=== PATIENT | female | born 2000 | race Caucasian/White ===

== ENCOUNTER 2023-04-12 14:21 | Emergency (ER) | payer OTHER, SELFPAY ==
[2023-04-12 14:34] VITALS: BP 104/75
[2023-04-12 15:03] LABS: % Basophils 0.2 % (0-2); % Eosinophils 0.7 % (0-6); % Immature Granulocytes 0.4 % (0-0.5); % Lymphocytes 19.2 % (20.5-51.1); % Monocytes 8.9 % (1.7-9.3); % Neutrophils 70.6 % (42.2-75.2); Absolute Eosinophils 0.1 10^3/uL (0-0.7); Absolute Lymphocytes 1.6 10^3/uL (1.2-3.4); Absolute Monocytes 0.7 10^3/uL (0.1-0.6); Absolute Neutrophils 5.7 10^3/uL (1.4-6.5); Hematocrit 35.8 % (37.0-47.0); Hemoglobin 12.4 g/dL (12.0-16.0); Mean Corp Hgb Conc. 34.6 g/dL (33.0-37.0); Mean Corpuscular Hgb 29.1 pg (27.0-31.0); Mean Platelet Volume 8.9 fL (7.4-10.4); Nucleated Red Blood Cells % 0 %; Platelet Count 342 10^3/uL (130-400); Red Blood Cell Count 4.26 10^6/uL (4.20-5.40); Red Cell Dist. Width 15.1 % (11.5-14.5); White Blood Cell Count 8.1 10^3/uL (4.8-10.8)
[2023-04-12 15:06] LABS: Urine Albumin Negative (Neg - Trace); Urine Bilirubin Negative (Negative); Urine Character Clear (Clear); Urine Color Yellow; Urine Glucose Negative (Negative); Urine Ketone Negative (Negative); Urine Leukocyte Negative (Negative); Urine Nitrite Negative (Negative); Urine Occult Blood Negative (Negative); Urine Specific Gravity 1.005 (<1.030); Urine Urobilinogen Negative (Neg - 1+)
[2023-04-12 15:10] LABS: HCG, Serum Qualitative Screen Negative
[2023-04-12 15:13] LABS: ALT (SGPT) 12 U/L (0-35); AST (SGOT) 16 U/L (14-36); Albumin 4.2 g/dl (3.5-5.0); Alkaline Phosphatase 61 U/L (38-126); Blood Urea Nitrogen 9 mg/dl (7-17); Calcium 9.9 mg/dl (8.4-10.2); Carbon Dioxide 27 mmol/L (22-30); Chloride 101 mmol/L (98-107); Glucose 86 mg/dl (70-99); Potassium 4.4 mmol/L (3.5-5.1); Sodium 138 mmol/L (135-145); Total Bilirubin 1.6 mg/dl (0.2-1.3); Total Protein 6.9 g/dl (6.3-8.2); eGFR > 60.00
[2023-04-12 15:23] LABS: Lipase 41 U/L (23-300)
--- NOTE | 2023-04-12 16:30 | ED.GENMED ---
History of Present Illness
General
Chief Complaint: Urinary Symptoms
Source: patient
Exam Limitations: none
Time Seen by Provider: 04/12/23 15:06
Nursing documentation reviewed up to this point in time: agreed with
Travel History
Have you had any contact with someone who has COVID-19?: No
Do you have any symptoms of coronavirus? Fever > 100 degrees, chills, cough, shortness of breath, sore throat, loss of taste or smell, muscle aches, or headache?: No
History of Present Illness
History of Present Illness:
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 urinary urgency/frequency, as well as abdominal discomfort, with decreased appetite.
Denies fever or chills. Denies vomiting or diarrhea. Denies trauma. Denies inability to urinate. Patient has had similar symptoms in the past and diagnosed with UTI. Denies recent change in diet. Denies sick contact.
Past History
Past History
ED Past Medical History: Asthma (exercise induced), Psychiatric (bipolar) and Other (ADHD,)
Social History
Tobacco: Non-smoker
Alcohol: None
Drug: None
Family History
Family History: Other
Review of Systems
Review of Systems
Allergies reviewed?: Yes
All Other Systems: ROS reviewed and negative except as documented in HPI and ROS
Constitutional: Reports no symptoms; Denies fever or chills
ABD/GI: Reports abdominal pain; Denies nausea, vomiting or diarrhea
: Reports frequency and urgency; Denies dysuria or difficulty voiding
Musculoskeletal: Reports no symptoms
Skin: Reports no symptoms
Neurological: Reports no symptoms
Phy Exam
Physical Exam
Physical Exam:
Physical Exam
General: no apparent distress, not acutely ill. afebrile
Head: nc/at. eomi
Neck: supple. no meningeal signs.
Heart: s1/s2 regular rate and rhythm, no murmur. equal radial pulses.
Lungs: no acute respiratory distress. clear bilaterally
Abdomen: normal bowel sounds. not tender.
Neuro: alert and oriented. no focal neurological deficits
Skin: no rash
Psychiatric: well kept. interactive and cooperative
Extremities: no edema. no calf tenderness.
Course
Orders/Labs/Results
Orders:
Orders
04/12/23 14:39
Test Result ONCE
04/12/23 14:45
Complete Blood Count/With Diff Urgent
Comprehensive Metabolic Panel Urgent
HCG, Serum Qualitative Screen Urgent
Lipase Urgent
Monotest Urgent
Comment: add-on
Urinalysis Reflex To Culture Urgent
Date Specimen was Collected: 04/12/23
Time Specimen was Collected: 14:39
04/12/23 16:29
US Abdomen Complete/Upper Urgent
Comment:
Reason For Exam: upper abdominal pain
04/12/23 16:32
Add On- LAB Urgent
Tests Added?: monotest
Abnormal Lab Results
04/12/23
14:45
Hct 35.8 L %
(37.0-47.0)
RDW 15.1 H %
(11.5-14.5)
Absolute Monos (auto) 0.7 H 10^3/uL
(0.1-0.6)
Lymphocytes % 19.2 L %
(20.5-51.1)
Total Bilirubin 1.6 H mg/dl
(0.2-1.3)
04/12/23 14:45
04/12/23 14:45
Vital Signs
Initial and Last Documented VS:
Initial Vital Signs
Temp Pulse Resp BP Pulse Ox
98.3 F 91 18 104/75 98
04/12/23 14:34 04/12/23 14:34 04/12/23 14:34 04/12/23 14:34 04/12/23 14:34
Last Documented Vital Signs
Temp Pulse Resp BP Pulse Ox
98.3 F 83 16 93/64 98
04/12/23 14:34 04/12/23 18:05 04/12/23 18:05 04/12/23 18:05 04/12/23 14:34
MDM/Problems Addressed
MDM/Problems Addressed:
US abdomen: no acute findings.
Pt will be advised to continue macrobid until urine culture result becomes available via her PCP along with PPI, i.e. prilosec. Pt is otherwise, afebrile, hemodynamically stable and nontoxic appearing at time of discharge, to the care of her family.
*Critical Care Note
Total Time (30-74mins, 75-104mins- exclusive of procedures): Not Applicable
ED Attending Note
-
Portions of this chart may have been created with voice recognition software.� Occasional wrong word or��sound alike� substitutions may have occurred due to the inherent limitations of voice recognition software.
Discharge Plan
Departure
Patient Disposition: Home (Routine Discharge)
Date of Disposition: 04/12/23
Time of Disposition: 17:45
Patient with high blood pressure during this ER visit?: Yes
Condition: Good
Discharge Problem:
Abdominal pain
Instructions: Abdominal Pain, Adult ED
Prescriptions:
No Action
prednisone 20 MG tablet
40 mg PO DAILY Qty: 10 1RF
albuterol sulfate 2.5 MG/3 ML solution for nebulization
2.5 mg inhalation R Q4HPRN PRN (Reason: cough, wheezing) Qty: 30 1RF
montelukast 10 MG tablet
10 mg PO QPM Qty: 30 0RF
Referrals:
Shade Lawrence, DO [Family Provider] -
Activity Restrictions/Additional Instructions:
As discussed, please follow-up with your primary care physician with any further concerns.
Interventions
Interventions:
*General Assessment Last Done: 04/12/23 14:34
*ED COVID-19 Vaccine History Last Done: 04/12/23 14:34
*Nursing Disposition Last Done: 04/12/23 18:05
ED-Female Genitourinary Assessment Last Done: 04/12/23 17:58
Discharge Date and Time
Discharge Date/Time: 04/12/23 18:50
[2023-04-12 18:02] VITALS: BP 93/64
[2023-04-12 18:05] VITALS: BP 93/64
[2023-04-12 18:09] LABS: Monotest Negative (Negative)
== END 2023-04-12 18:50 | disposition home or self-care (01) ==
LOC: EMR 14:21
PROVIDERS: Emergency Medicine; EMERGENCY PHYSICIAN Emergency Medicine; FAMILY PHYSICIAN Pediatrics
DX: R10.9 Unspecified abdominal pain (principal); J45.909 Unspecified asthma, uncomplicated; F31.9 Bipolar disorder, unspecified; F90.9 Attention-deficit hyperactivity disorder, unspecified type; Z87.440 Personal history of urinary (tract) infections
CPT/HCPCS: 99284; 76700; 80053; 81003; 83690; 84703; 85025; 86308

== ENCOUNTER 2023-06-04 21:21 | Emergency (ER) | payer OTHER, SELFPAY ==
[2023-06-04 21:24] VITALS: BP 124/90
[2023-06-04 21:56] LABS: % Basophils 0.2 % (0-2); % Eosinophils 0.8 % (0-6); % Immature Granulocytes 0.4 % (0-0.5); % Lymphocytes 24.2 % (20.5-51.1); % Monocytes 5.4 % (1.7-9.3); Absolute Eosinophils 0.1 10^3/uL (0-0.7); Absolute Lymphocytes 2.6 10^3/uL (1.2-3.4); Absolute Monocytes 0.6 10^3/uL (0.1-0.6); Absolute Neutrophils 7.4 10^3/uL (1.4-6.5); Hematocrit 36.7 % (37.0-47.0); Hemoglobin 13.2 g/dL (12.0-16.0); Mean Corpuscular Hgb 28.1 pg (27.0-31.0); Mean Corpuscular Volume 78.3 fL (81.0-99.0); Mean Platelet Volume 9.4 fL (7.4-10.4); Nucleated Red Blood Cells % 0 %; Platelet Count 389 10^3/uL (130-400); Red Blood Cell Count 4.69 10^6/uL (4.20-5.40); Red Cell Dist. Width 13.5 % (11.5-14.5); White Blood Cell Count 10.7 10^3/uL (4.8-10.8)
[2023-06-04 22:07] LABS: INR 1.09; PT 14.1 Sec (11.4-14.6)
[2023-06-04 22:14] LABS: ALT (SGPT) 32 U/L (0-35); AST (SGOT) 125 U/L (14-36); Albumin 4.7 g/dl (3.5-5.0); Alkaline Phosphatase 68 U/L (38-126); Blood Urea Nitrogen 21 mg/dl (7-17); Calcium 10.2 mg/dl (8.4-10.2); Carbon Dioxide 17 mmol/L (22-30); Chloride 105 mmol/L (98-107); Glucose 93 mg/dl (70-99); Sodium 136 mmol/L (135-145); Total Bilirubin 1.4 mg/dl (0.2-1.3); Total Protein 7.5 g/dl (6.3-8.2); eGFR > 60.00
[2023-06-04 22:20] LABS: Troponin I < 0.012 ng/ml
--- NOTE | 2023-06-05 00:26 | ED.GENMED ---
History of Present Illness
<JAMES Valderrama - Last Filed: 06/05/23 06:43>
General
Chief Complaint: Chest Pain
Source: patient and family
Time Seen by Provider: 06/04/23 23:43
Travel History
Have you had any contact with someone who has COVID-19?: No
Do you have any symptoms of coronavirus? Fever > 100 degrees, chills, cough, shortness of breath, sore throat, loss of taste or smell, muscle aches, or headache?: No
History of Present Illness
History of Present Illness:
Pt is a 23 y/o female with a PMHx of GERD, asthma, anxiety, panic attacks, and iron-deficient anemia presenting with chest pressure and SOB x 4 days. She notes she had a medical marijuana card and up until 1 week ago was smoking at least once per
day. She has not smoked in the last week as she ran out and has not wanted to leave her house. She states the chest pressure and SOB began increasing in severity today and was not relieved by her inhaler. She states she had one bout of radiation of
pain from her chest to her back this evening but not since. She also developed tingling in her arms, hand, legs, feet, and lips today when her SOB was escalating and she felt she was hyperventilating but states the sensation is no longer present.
She also admits to anorexia and abdominal pain x 2 weeks, blood in her stool once one week ago stating it was darker in color, and she has been having sensations of light headedness when standing x 1 month. She notes the light headedness is worse in
the shower and she feels like she is going to black out. She is following up with GI next week for her GI symptoms. She denies recent illness, travel, control use, immobilization, numbness, fever.
Past History
<JAMES Valderrama - Last Filed: 06/05/23 06:43>
Past History
ED Past Medical History: Asthma (exercise induced), Psychiatric (bipolar) and Other (ADHD,)
Social History
Tobacco: Non-smoker
Alcohol: None
Drug: None
Family History
Family History: Other
Review of Systems
<JAMES Valderrama - Last Filed: 06/05/23 06:43>
Review of Systems
Allergies reviewed?: Yes
Constitutional: Reports weight loss and other (cold sweats)
EENT: Reports no symptoms
Respiratory: Reports trouble breathing
Cardiac: Reports chest pain and other (chest pressure)
ABD/GI: Reports abdominal pain, nausea, vomiting, bloody stools and anorexia
: Reports no symptoms
Skin: Reports no symptoms
Neurological: Reports weakness and other (tingling of of limbs bilaterally)
Endocrine: Reports no symptoms
Hematologic/Lymphatic: Reports no symptoms
Psychiatric: Reports anxiety (with panic attacks)
Phy Exam
<JAMES Valderrama - Last Filed: 06/05/23 06:43>
General Physical Exam
General Presentation: well appearing
General age: appears stated age
General Skin: warm and dry
General Habitus: normal
General Mental: alert and anxious
General Hydration: appears well hydrated
ENT Exam
ENT Exam: EOMI and neck supple
Cardiovascular Exam
Cardiovascular Exam: regular rate/rhythm, no edema, no gallop, no murmur, normal peripheral pulses and other (negative Sree's sign)
Pulmonary Exam
Pulmonary Exam: lungs clear, no respiratory distress, no rales, chest non tender, no crackles, no rhonchi, no wheezing and no cough
Gastrointestinal Exam
Gastrointestinal Exam: normal bowel sounds, non tender, soft and non distended
Neurological Exam
Neurological Exam: alert and oriented x3
Skin Exam
Skin Exam: normal color and warm/dry
Psychiatric Exam
Psychiatric Exam: normal mood/affect and anxious
Scores
<Humera Carter [facility] - Last Filed: 06/05/23 06:43>
Heart Score for Chest Pain Patients
STEMI patient?: Not applicable
PE Wells Score
Symptoms of DVT: No
No alternative diagnosis better explains the illness: No
Tachycardia with pulse > 100: No
Immobilization (>=3 days) or surgery within previous 4 weeks: No
Prior history of DVT or pulmonary embolism: No
Presence of hemoptysis: No
Presence of malignancy: No
Pulmonary Embolism Risk Score: 0
Probability of PE: Pt is low risk
PERC Rule Criteria
Age <50 years: Yes
HR <100 bpm: Yes
Room air oxygen sat >94%: Yes
History of DVT or PE: No
Recent trauma or surgery: No
Hemoptysis: No
Exogenous estrogen: No
Clinical signs suggestive of DVT: No
: No
Considered low risk for PE: Yes
PERC Score: 0
PE can be excluded by PERC: Yes
<Yinka Rosado DO - Last Filed: 06/05/23 01:12>
PE Wells Score
Pulmonary Embolism Risk Score: 0
Probability of PE: Pt is low risk
PERC Rule Criteria
PERC Score: 1
PE can be excluded by PERC: No
Course
<Humera Carter [facility] - Last Filed: 06/05/23 06:43>
Orders/Labs/Results
Orders:
Orders
06/04/23 21:28
Electrocardiogram (*1) Urgent
Reason for Study: Chest Pain
EKG- Treatment ONCE
06/04/23 21:39
Type+Screen Urgent
Complete Blood Count/With Diff Urgent
Comprehensive Metabolic Panel Urgent
D-Dimer Urgent
Comment: ADD ON
Prothrombin Time Urgent
Troponin I Urgent
06/05/23 01:00
Add On- LAB Urgent
Tests Added?: d dimer
06/05/23 02:10
CXR2 [CR Chest - 2 Views ] Urgent
Comment:
Reason For Exam: chest pain
Abnormal Lab Results
06/04/23
21:39
Hct 36.7 L %
(37.0-47.0)
MCV 78.3 L fL
(81.0-99.0)
Absolute Neuts (auto) 7.4 H 10^3/uL
(1.4-6.5)
Carbon Dioxide 17 L mmol/L
(22-30)
BUN 21 H mg/dl
(7-17)
Total Bilirubin 1.4 H mg/dl
(0.2-1.3)
AST 125 H U/L
(14-36)
06/04/23 21:39
06/04/23 21:39
Vital Signs
Initial and Last Documented VS:
Initial Vital Signs
Temp Pulse Resp BP Pulse Ox
98.2 F 142 30 124/90 100
06/04/23 21:24 06/04/23 21:24 06/04/23 21:24 06/04/23 21:24 06/04/23 21:24
Last Documented Vital Signs
Temp Pulse Resp BP Pulse Ox
98.2 F 74 18 116/72 98
06/04/23 21:24 06/05/23 00:43 06/05/23 00:43 06/05/23 00:43 06/05/23 00:43
[place];Yinka Rosado, DO - Last Filed: 06/05/23 01:12>
Orders/Labs/Results
Orders:
Orders
06/04/23 21:28
Electrocardiogram (*1) Urgent
Reason for Study: Chest Pain
EKG- Treatment ONCE
06/04/23 21:39
Type+Screen Urgent
Complete Blood Count/With Diff Urgent
Comprehensive Metabolic Panel Urgent
D-Dimer Urgent
Comment: ADD ON
Prothrombin Time Urgent
Troponin I Urgent
06/05/23 01:00
Add On- LAB Urgent
Tests Added?: d dimer
06/05/23 02:10
CXR2 [CR Chest - 2 Views ] Urgent
Comment:
Reason For Exam: chest pain
Abnormal Lab Results
06/04/23
21:39
Hct 36.7 L %
(37.0-47.0)
MCV 78.3 L fL
(81.0-99.0)
Absolute Neuts (auto) 7.4 H 10^3/uL
(1.4-6.5)
Carbon Dioxide 17 L mmol/L
(22-30)
BUN 21 H mg/dl
(7-17)
Total Bilirubin 1.4 H mg/dl
(0.2-1.3)
AST 125 H U/L
(14-36)
06/04/23 21:39
06/04/23 21:39
Vital Signs
Initial and Last Documented VS:
Initial Vital Signs
Temp Pulse Resp BP Pulse Ox
98.2 F 142 30 124/90 100
06/04/23 21:24 06/04/23 21:24 06/04/23 21:24 06/04/23 21:24 06/04/23 21:24
Last Documented Vital Signs
Temp Pulse Resp BP Pulse Ox
98.2 F 74 18 116/72 98
06/04/23 21:24 06/05/23 00:43 06/05/23 00:43 06/05/23 00:43 06/05/23 00:43
[place];JAMES Valderrama - Last Filed: 06/05/23 06:43>
*EKG
Interpreted by ED Provider?: Yes
Interpretation: normal
*Critical Care Note
Total Time (30-74mins, 75-104mins- exclusive of procedures): Not Applicable
ED Attending Note
<JAMES Valderrama - Last Filed: 06/05/23 06:43>
-
Portions of this chart may have been created with voice recognition software.� Occasional wrong word or��sound alike� substitutions may have occurred due to the inherent limitations of voice recognition software.
<Yinka Rosado DO - Last Filed: 06/05/23 01:12>
ED Attending Note
Patient seen and examined by attending physician: Yes
I performed the substantive portion of visit, reviewed & personally made and approve the management plan that is documented in note by myself or ENOCH.: Yes
ED Attending Note:
This is a pleasant 23-year-old female that presents with chest pain and shortness of breath. She has had numbness and tingling in bilateral upper and lower extremities that began today. She did report 1 episode of bloody stool last week. Patient
was seen by her family doctor and had outpatient lab work. Labs were essentially normal. Glucose and bicarb were slightly abnormal. Her iron studies were also slightly abnormal. Patient was seen in conjunction with the PA student. I have
reviewed and agree with the history and treatment plan presented. On my independent physical exam, patient is awake, alert, and oriented x3, no acute distress. Heart is regular rate and rhythm. Lungs are clear to auscultation bilaterally no
wheezes rales or rhonchi. Abdomen soft nontender nondistended. Moves all 4 extremities. Skin is warm and dry.
Discharge Plan
Departure
Patient Disposition: Home (Routine Discharge)
Date of Disposition: 06/05/23
Time of Disposition: 03:20
Patient with high blood pressure during this ER visit?: No
Condition: Good
Discharge Problem:
Chest pain, Shortness of breath
Instructions: Chest Pain PCP Follow Up
Prescriptions:
No Action
prednisone 20 MG tablet
40 mg PO DAILY Qty: 10 1RF
albuterol sulfate 2.5 MG/3 ML solution for nebulization
2.5 mg inhalation R Q4HPRN PRN (Reason: cough, wheezing) Qty: 30 1RF
montelukast 10 MG tablet
10 mg PO QPM Qty: 30 0RF
Referrals:
Sada Abad MD [Family Provider] -
Activity Restrictions/Additional Instructions:
It was a pleasure meeting you and taking part in your care. We hope for your continued healing and wellness.
Please read discharge instructions in their entirety. However, they are for general education and may not describe your exact diagnosis at discharge. Information on your ER visit and medical conditions were discussed with you along with appropriate
follow up information...
If indicated, please take your medications as instructed and indicated on discharge paperwork.
Please schedule a follow up appointment as directed. Call to schedule an appointment
Please return to the emergency department with ANY change in, persisting, or worsening of symptoms. If any of your symptoms do not improve, or persist, or become more severe within 6-12 hours, please return to the emergency department for further
care.
Please return to the emergency department if you develop a headache, neck pain/stiffness, fever greater than 100.4F, chest pain, shortness of breath, persistent nausea, vomiting, slurred speech, difficulty walking, numbness/tingling, weakness, signs
of infection or any other symptoms that are worrisome to you.
If you have any questions or concerns please do not hesitate to call the Hospital at or E-mail me directly at
Interventions
Interventions:
*Risk Screen - Suicide Last Done: 06/04/23 21:24
*General Assessment Last Done: 06/04/23 21:24
*Neglect/Abuse Screening Last Done: 06/04/23 21:24
ED- Fall Risk Assessment Last Done: 06/05/23 00:53
*ED COVID-19 Vaccine History Last Done: 06/04/23 23:56
*Nursing Disposition Last Done: 06/05/23 03:47
ED- Cardiac Assessment Last Done: 06/05/23 00:53
Discharge Date and Time
Discharge Date/Time: 06/05/23 03:47
[2023-06-05 00:43] VITALS: BP 116/72
[2023-06-05 01:31] LABS: D-Dimer 0.31 ug/mlFEU (0.00-0.50)
== END 2023-06-05 03:47 | disposition home or self-care (01) ==
LOC: EMR 21:21
PROVIDERS: Emergency Medicine; EMERGENCY PHYSICIAN Student in an Organized Health Care Education/Training Program; FAMILY PHYSICIAN Pediatrics
DX: R07.89 Other chest pain (principal); R06.02 Shortness of breath; K21.9 Gastro-esophageal reflux disease without esophagitis
CPT/HCPCS: 99285; 71046; 80053; 84484; 85025; 85379; 85610; 86850; 86900; 86901; 93005

== ENCOUNTER 2023-06-06 18:23 | Emergency (ER) | payer OTHER, SELFPAY ==
[2023-06-06 18:25] VITALS: BP 115/76
--- NOTE | 2023-06-06 18:39 | ED.GENMED ---
History of Present Illness
General
Chief Complaint: Rectal Bleeding
Source: patient
Exam Limitations: none
Time Seen by Provider: 06/06/23 18:39
Nursing documentation reviewed up to this point in time: agreed with
Travel History
Have you had any contact with someone who has COVID-19?: No
Do you have any symptoms of coronavirus? Fever > 100 degrees, chills, cough, shortness of breath, sore throat, loss of taste or smell, muscle aches, or headache?: No
History of Present Illness
History of Present Illness:
23-year-old female presents to the ER for evaluation. Patient has a history of anxiety, bipolar disease ADHD, panic attacks presents to the ER for evaluation. Patient reports she has been nauseous and not been able to eat because of nausea for the
past 1 month. She has a history of reflux and is followed by GI here at [place]. She called the office last week and was instructed to omeprazole however that has not given her relief. She reports she was seen here 2 days ago. I did review
this note. patient was evaluated for chest pressure and shortness of breath. Note does mention that patient had complained of bloody stool last week her iron studies were slightly abnormal.
Since 2 days ago,Patient reports she has had intermittent bright red blood on the toilet paper when she wiped and today however noted dark stool x 2 in the toilet mixed with bright red blood. She denies any lightheaded dizziness. She is not on
blood thinners. She does report episodes of dark stool occurred prior to taking iron.
She called GI today who instructed her to come to the ED.
Pt is not on blood thinners denies any use of Pepto-Bismol. Mom at bedside reports patient has a GI appointment on Thursday.
Past History
Past History
ED Past Medical History: Asthma (exercise induced), Psychiatric (bipolar) and Other (ADHD,)
Social History
Tobacco: Non-smoker
Alcohol: None
Drug: None
Family History
Family History: Other
Phy Exam
General Physical Exam
General Presentation: no apparent distress
General age: appears stated age
General Skin: warm and dry
General Habitus: normal
General Mental: alert
General Hydration: appears well hydrated
Gastrointestinal Exam
Gastrointestinal Exam: soft and other (rectal exam small external hemorrhoid no stool on Hemoccult tr positive on card )
Neurological Exam
Neurological Exam: alert and oriented x3
Musculoskeletal Exam
Musculoskeletal Exam: full ROM
Skin Exam
Skin Exam: normal color and warm/dry
Psychiatric Exam
Psychiatric Exam: agitated and anxious
Course
Vital Signs
Initial and Last Documented VS:
Initial Vital Signs
Temp Pulse Resp BP Pulse Ox
98.2 F 88 20 115/76 97
06/06/23 18:25 06/06/23 18:25 06/06/23 18:25 06/06/23 18:25 06/06/23 18:25
Last Documented Vital Signs
Temp Pulse Resp BP Pulse Ox
98.2 F 88 20 115/76 97
06/06/23 18:25 06/06/23 18:25 06/06/23 18:25 06/06/23 18:25 06/06/23 18:25
MDM/Problems Addressed
Differential Diagnosis Includes:
Not limited to hemorrhoids, GI bleed
MDM/Problems Addressed:
Patient is a 23-year-old as documented presented to the ER for concerns for rectal bleeding. She reported she had 2 episodes of dark stool today and bright red blood on the toilet paper when she wiped. She was seen here 2 days ago for chest pain
shortness of breath.
Patient was initially examined and appeared in no acute distress abdomen non tender. No active rectal bleeding. No stool and Hemoccult. Pt examined with JAYLYN Anderson at bedside
Patient became very belligerent cursing and yelling, non cooperative.
Mother at bedside along with boyfriend however patient continued to yell.
Security called to bedside.I asked pt several times is she wanted to be treated however she remained belligerent yelling . ED physician aware.
Patient presents with stable vital signs she is nontachycardic and stable for discharge home with outpatient follow-up which is previously scheduled.
She has GI appt scheduled for Thursday.
Pt to be discharged home and to f/u w/ GI.
*Pulse Oximetry
Patient hypoxic: no
*Critical Care Note
Total Time (30-74mins, 75-104mins- exclusive of procedures): Not Applicable
Data Reviewed
Review of Other/Old Records Reveals: Other (previous ED visits )
ED Attending Note
-
Portions of this chart may have been created with voice recognition software.� Occasional wrong word or��sound alike� substitutions may have occurred due to the inherent limitations of voice recognition software.
Discharge Plan
Departure
Patient Disposition: Home (Routine Discharge)
Date of Disposition: 06/06/23
Time of Disposition: 19:19
Patient with high blood pressure during this ER visit?: No
Condition: Fair
Covid-19: Not Applicable
Discharge Problem:
Rectal bleeding
Instructions: Bloody Stools, Adult (DC)
Prescriptions:
No Action
prednisone 20 MG tablet
40 mg PO DAILY Qty: 10 1RF
albuterol sulfate 2.5 MG/3 ML solution for nebulization
2.5 mg inhalation R Q4HPRN PRN (Reason: cough, wheezing) Qty: 30 1RF
montelukast 10 MG tablet
10 mg PO QPM Qty: 30 0RF
Activity Restrictions/Additional Instructions:
Follow up with your GI doctor as scheduled on Thursday. continue to take your Omeprazole and iron as prescribed
Interventions
Interventions:
*Risk Screen - Suicide Last Done: 06/06/23 18:25
*General Assessment Last Done: 06/06/23 18:25
*Neglect/Abuse Screening Last Done: 06/06/23 19:42
ED- Fall Risk Assessment Last Done: 06/06/23 19:00
*ED COVID-19 Vaccine History Last Done: 06/06/23 19:42
*Nursing Disposition Last Done: 06/06/23 19:42
XH-Ehdvhn-Pywaswbgpg Assessment Last Done: 06/06/23 19:00
ED- Cardiac Assessment Last Done: 06/06/23 19:00
ED- Pulmonary Assessment Last Done: 06/06/23 19:00
Discharge Date and Time
Discharge Date/Time: 06/06/23 19:49
--- NOTE | 2023-06-06 19:16 | EDRN ---
In at bedside with CALEB Anderson who needs to do a rectal exam for patient complaining of dark stool, patient starts crying and upset states shes worried, CALEB Anderson in a calm voice goes over the procedure and explains what will exactly happen, also
states that if she doesn't want to have the exam we can hold off, patient states she wants the exam and agrees to it. Exam is done, patient tolerates and seems calm and okay with this, family allowed into the room at this time while this RN is
starting IV, patient starts cursing at the family and yelling, explain to patient to focus on me and lets get iV to try to figure out whats wrong. CALEB Anderson enters room to ask patient about being on Iron, patient reports starting it today, patient
then starts yelling and coursing at myself and CALEB Anderson 'if you would fucking do your job or know what the hell you're doing then I wouldn't have to keep coming back' patient was asked to lower voice and to please stop cursing, not appropriate
behavior or way to speak to staff. Patient continues to curse and be belligerent towards staff, security called to room. CALEB Anderson asks patient if she would like to be treated, patient immediately begins yelling at we 'don't have a fucking clue
what we are doing and don't help her anyway and its a waste to spend thousands of dollars and not know what's wrong' Patient was informed then she can be discharged home and to keep her apt with GI this week, as she can not verbally abuse staff.
Patient was provided with paperwork and informed to follow up with GI doctor. Patients IV taken out, and security escorts patient out as she gives all passing staff the middle finger.
== END 2023-06-06 19:49 | disposition home or self-care (01) ==
LOC: EMR 18:23
PROVIDERS: EMERGENCY PHYSICIAN Emergency Medicine
DX: K62.5 Hemorrhage of anus and rectum (principal); F41.9 Anxiety disorder, unspecified; F31.9 Bipolar disorder, unspecified; F90.9 Attention-deficit hyperactivity disorder, unspecified type; F41.0 Panic disorder [episodic paroxysmal anxiety]; J45.909 Unspecified asthma, uncomplicated; K21.9 Gastro-esophageal reflux disease without esophagitis
CPT/HCPCS: 99282

== ENCOUNTER → 2023-08-12 07:53 | Outpatient (REF) | payer OTHER, SELFPAY | LOC: RAD 07:53 | PROVIDERS: ATTENDING PHYSICIAN Physician Assistant; FAMILY PHYSICIAN Internal Medicine; REFERRING PHYSICIAN Internal Medicine Gastroenterology | DX: R11.2 Nausea with vomiting, unspecified (principal) | CPT/HCPCS: 78264; A9541 ==

== ENCOUNTER → 2024-05-26 12:50 | Outpatient (REF) | payer OTHER, SELFPAY | LOC: HWRAD 12:50 | PROVIDERS: ATTENDING PHYSICIAN Obstetrics & Gynecology; FAMILY PHYSICIAN Internal Medicine | DX: R10.2 Pelvic and perineal pain (principal) | CPT/HCPCS: 76830; 76856 ==